=== PATIENT | male | born 1975 | race Caucasian/White ===

== ENCOUNTER 2023-09-20 12:52 | Emergency (ER) | payer OTHER, SELFPAY ==
--- NOTE | 2023-09-20 13:00 | DI.RAD_ITS ---
Exam(s) XR KNEE LT 4V AP,LAT,ANGELA,PAT EXAM: XR KNEE LT 4V AP,LAT,ANGELA,PAT CLINICAL HISTORY: Left knee pain fall. TECHNIQUE: 2D digital imaging was performed. Three views. COMPARISON: No exams were available for comparison FINDINGS: BONES: No acute fracture is present. No bony destructive lesion is seen. JOINTS: The knee is normally aligned. No joint effusion is seen. SOFT TISSUE: Normal. IMPRESSION: Normal radiographs of the left knee. DATA REPOSITORY: RADIATION DOSE DELIVERED:
[2023-09-20 13:16] VITALS: BP 124/61; PULSE 88; RESP 16; TEMP 36.6; O2SAT 99
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
[2023-09-20] MEDS: Lidocaine/Epinephri/Tetracaine Topical Gel 3 ML (13:31)
[2023-09-20] MEDS: Lidocaine/Epinephri/Tetracaine Topical Gel 3 ML TP (13:32)
[2023-09-20] MEDS: Ketorolac 15 MG/ML VIAL IVP (13:42)
[2023-09-20] MEDS: Acetaminophen 500 MG TAB 1000 MG PO (13:42)
[2023-09-20] MEDS: ceFAZolin 2 GM/50 ML BAG IVPB (13:42)
--- NOTE | 2023-09-20 16:15 | DI.VRAD_ITS ---
PROCEDURE INFORMATION: Exam: XR Left Knee Exam date and time: 09/20/2023 3:39 PM Age: 47 years old Clinical indication: Injury or trauma; Blunt trauma; Patient HX: Left knee pain after fall TECHNIQUE: Imaging protocol: Radiologic exam of the left knee. Views: 4 or more views. COMPARISON: No relevant prior studies available. FINDINGS: Bones/joints: Trace joint effusion. Bone density is appropriate. Bony alignment is anatomic. No evidence for fracture. Soft tissues: There is soft tissue swelling in the medial knee compartment. IMPRESSION: No evidence for fracture. Dictated and Authenticated by: Monica Schafer MD. Ordering:TREY Sabillon MD
== END 2023-09-20 16:24 | disposition home or self-care (01) ==
PROVIDERS: Emergency Provider Emergency Medicine
DX: S50.311A Abrasion of right elbow, initial encounter (principal); S80.212A Abrasion, left knee, initial encounter; V18.4XXA Pedal cycle driver injured in noncollision transport accident in traffic accident, initial encounter
CPT/HCPCS: 96365; 96375; 99284; 73564; 99283; J0690; J1885

== ENCOUNTER 2023-12-06 15:25 | Emergency (ER) | payer SELFPAY ==
[2023-12-06 15:28] VITALS: BP 147/69; PULSE 73; RESP 20; TEMP 36.6; O2SAT 100
[2023-12-06 15:37] VITALS: O2SAT 98
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
[2023-12-06 15:40] VITALS: O2SAT 98
[2023-12-06] MEDS: oxyCODONE 5 mg/Acetaminophen 325 mg TAB 1 TAB PO (15:42)
[2023-12-06] MEDS: Ondansetron O.D.T. 4 MG TABEF PO (15:42)
[2023-12-06] MEDS: Lidocaine/Epinephri/Tetracaine Topical Gel 3 ML TP (15:43)
[2023-12-06 15:46] VITALS: BP 160/61; PULSE 67; O2SAT 98
[2023-12-06 15:47] VITALS: O2SAT 100
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
[2023-12-06] MEDS: Cephalexin 500 MG CAP PO (17:17)
[2023-12-06] MEDS: Cephalexin 500 MG CAP, 2 CAPS/BTL PO (17:17)
[2023-12-06] MEDS: Lidocaine 1% Multi-Dose W/EPI 1/100,000 50 ML VIAL (17:22)
[2023-12-06] MEDS: Lidocaine 1% Multi-Dose W/EPI 1/100,000 10 ML VIAL IJ (17:29)
== END 2023-12-06 17:33 | disposition home or self-care (01) ==
PROVIDERS: Emergency Provider Registered Nurse Emergency
DX: S51.812A Laceration without foreign body of left forearm, initial encounter (principal); S80.212A Abrasion, left knee, initial encounter; S70.212A Abrasion, left hip, initial encounter; V18.0XXA Pedal cycle driver injured in noncollision transport accident in nontraffic accident, initial encounter
CPT/HCPCS: 12032; 99283; 73090; J2004